=== PATIENT | male | born 1990 | race Caucasian/White ===

== ENCOUNTER 2020-06-15 15:13 | Emergency (ER) | payer OTHER, SELFPAY ==
--- NOTE | ~2020-06-15 | XR_ITS ---
XR chest 1V portable DATE: 06/15/2020 17:43 INDICATION: Cough, shortness of breath for 4 weeks TECHNIQUE: Portable AP chest on 06/15/2020 at 1743 hours COMPARISON: None FINDINGS: Bilateral thoracic pedicle screws and rods are noted. Moderate bilateral hyperinflation. No pulmonary infiltrate or consolidation, pleural effusion or pulm onary vascular congestion or pneumothorax is detected. Heart size appears within normal limits. No hilar or mediastinal enlargement. Included skeletal structures are otherwise unremarkable. IMPRESSION: Moderate hyperinflation; no active cardiopulmonary disease otherwise Reviewed, dictated and finalized at location B. [employer]IED [employer] FARM[employer] IMPRESSION: Moderate hyperinflation; no active cardiopulmonary disease otherwis e
--- NOTE | 2020-06-15 15:15 | ECG_ITS ---
Measurements Intervals Solomon Rate: 91 P: 58 TX: 149 QRS: -9 QRSD: 93 T: 13 QT: 346 QTc: 426 Interpretive Statements SINUS RHYTHM WITH SINUS ARRHYTHMIA BASELINE ARTIFACT- I, II, AVR BORDERLINE ECG Electronically Signed On 06-15-2020 16:30:05 TRAINING AND DEVELOPMENT MANAGER by Estrada Crouch D.O.
[2020-06-15 15:16] VITALS: BP 145/88; PULSE 96; RESP 16; TEMP 36.1; O2SAT 100
[2020-06-15 15:34] LABS: Basophils Percent Auto 0.3 % (0.2-1.2); Eosinophils Percent Auto 0.6 % (0-4.4); Hematocrit 42.9 % (42.0-52.0); Hemoglobin 14.5 g/dL (14.0-18.0); Immature Granulocyte Absolute 0.01 K/mm3 (0.00-0.031); Immature Granulocyte Percent A 0.2 % (0-0.5); Lymphocytes Absolute Auto 1.37 K/mm3 (0.9-3.2); Lymphocytes Percent Auto 22.1 % (18.3-44.2); Mean Corpuscular HGB Conc 33.8 g/dl (32-36); Mean Corpuscular Hemoglobin 27.6 pg (26-34); Mean Corpuscular Volume 81.6 fl (80-100); Mean Platelet Volume 9.5 fl (7.4-10.4); Monocytes Absolute Auto 0.5 K/mm3 (0.1-0.6); Monocytes Percent Auto 8.7 % (2.6-8.5); Neutrophils Absolute Auto 4.2 K/mm3 (1.3-6.7); Neutrophils Percent Auto 68.1 % (45.5-73.1); Platelet Count Result 302 k/mm3 (150-375); Red Blood Count 5.26 M/mm3 (4.6-6.20); Red Cell Distribution Width 12.8 % (11.5-14.5); White Blood Count 6.2 K/mm3 (4.5-10.0)
[2020-06-15 15:46] LABS: Anion Gap 10 mmol/L (8-16); Blood Urea Nitrogen 10 mg/dL (9-20); Calcium 10.1 mg/dL (8.4-10.2); Carbon Dioxide 27 mmol/L (22-30); Chloride 104 mmol/L (98-107); Estimated CRCL calculation 144 ml/min; Estimated Glomerular Filt Rate > 60; Glucose 97 mg/dL (75-110); Potassium 3.8 mmol/L (3.4-5.0); Sodium 141 mmol/L (137-145)
--- NOTE | 2020-06-15 17:38 | ED.SOB ---
HPI - SOB/Dyspnea General Chief Complaint: Shortness of Breath/Dyspnea Stated Complaint: sob/cp Time Seen by Provider: 06/15/20 17:38 History of Present Illness HPI Narrative: 29 yo previously health male presents to the ED for CP and SOB. He recently had a 2 week long respiratory illness. He believes that this was likely COVID-19. He did not have testing done. He says that he recovered initially then his symptoms returned. He was then hospitalized and received what sounds like a very thourgh cardiac and respiratory evaluation. He was told that everything was fine. Today he returned to work for the first time since then and had 2 episodes of severe chest pain and SOB. At the time of my evaluation his symptoms have resolved. Related Data Home Medications Medication Instructions Recorded Confirmed No Home Medications 06/15/20 06/15/20 Allergies Allergy/AdvReac Type Severity Reaction Status Date / Time No Known Allergies Allergy Verified 06/15/20 15:21 Review of Systems Review of Systems: All systems reviewed & are unremarkable except as noted in HPI and below Constitutional: Constitutional: Denies chills, Denies fever(s) and Denies weakness ENT: Denies sore throat Cardiovascular: Cardiovascular: Reports chest pain Respiratory: Respiratory: Denies cough, Reports dyspnea and Denies wheezing Gastrointestinal: Gastrointestinal: Denies abdominal pain, Denies nausea and Denies vomiting Musculoskeletal: Musculoskeletal: Denies back pain Neurologic: Denies numbness and Denies weakness Psychiatric: Psychiatric: Denies anxiety [facility] Past Medical History Medical History (Updated 06/15/20 @ 18:25 by Lai Adams MD) Healthy adult Social History Social History (Updated 06/15/20 @ 18:25 by Lai Adams MD) Smoking status: Never smoker Gender identity (if verbalized by the patient): Male Exam Const: General: healthy appearing, no acute distress and alert Orientation/consciousness: patient oriented x3 HENMT: Head: normal to inspection Neck: Neck: normal visual inspection and no lymphadenopathy Other: no stridor Chest: Chest palpation & inspection: no tenderness Resp: Effort & Inspection: normal respiratory effort Auscultation: clear to auscultation bilaterally, no rales, no rhonchi and no wheezes Cardio: Jugular venous distension: no JVD Rate: regular rate Rhythm: regular rhythm Heart sounds: no murmurs GI: Inspection: non-distended GI Palp: Yes Soft to palpation and No Tenderness to palpation present (GI) Skin: General skin exam: normal color Neuro: General: patient oriented x3 and moves all extremities Speech: normal speech Gait exam (Neuro): Normal gait present Extrem: General: normal to inspection and no edema Psych: Appearance: well kempt Affect: Anxious affect present Course Vital Signs Vital signs: Vital Signs Temperature 36.1 C L 06/15/20 15:16 Pulse Rate 96 06/15/20 15:16 Respiratory Rate 16 06/15/20 15:16 Blood Pressure 145/88 H 06/15/20 15:16 Pulse Oximetry 100 06/15/20 15:16 Temperature 36.1 C L 06/15/20 15:16 Pulse Rate 96 06/15/20 15:16 Respiratory Rate 16 06/15/20 15:16 Blood Pressure 145/88 H 06/15/20 15:16 Pulse Oximetry 100 06/15/20 15:16 MDM - SOB/Dyspnea MDM Narrative Medical decision making narrative: Symptoms sound like panic attacks. Given recent work-up and todays testing have not revealed an other cause for his symptoms I think this is likely. I will prescribe a few xanax that he can try if his symptoms return to see if this helps. Differential Diagnosis Differential diagnosis: Likely community acquired pneumonia and other (anxiety) Medical Records Attestation: I reviewed the patient's medical records. Lab Data Attestation: I reviewed the patient's lab results. Result diagrams: 06/15/20 15:22 06/15/20 15:22 Labs: Lab Results 06/15/20 06/15/20 Range/Units 15:22 15
[2020-06-15 17:51] VITALS: O2SAT 99
[2020-06-15 18:40] VITALS: BP 137/92; PULSE 97; RESP 12; O2SAT 99
== END 2020-06-15 18:40 | disposition home or self-care (01) ==
LOC: ANHED 18:10
PROVIDERS: Emergency Provider Emergency Medicine; PCP Family Medicine
DX: R06.00 Dyspnea, unspecified (principal); R07.89 Other chest pain; R94.31 Abnormal electrocardiogram [ECG] [EKG]
CPT/HCPCS: 36415; 71045; 80048; 85025; 93005; 99283